=== PATIENT | male | born 1955 | race Caucasian/White ===

== ENCOUNTER 2024-01-30 20:15 | Outpatient (CLI) | payer MEDICARE, SELFPAY | END 2024-01-30 20:16 | disposition home or self-care (01) | LOC: SLEEP 20:16 | PROVIDERS: Visit Provider Internal Medicine | DX: G47.33 Obstructive sleep apnea (adult) (pediatric) (principal); G25.81 Restless legs syndrome | CPT/HCPCS: 95811 ==